=== PATIENT | female | born 1935 | race Asian ===

== ENCOUNTER 2017-10-27 21:39 | Inpatient (IN) | payer OTHER ==
[~2017-10-27] VITALS: Ht 154.9 cm; Wt 45.4 kg
[~2017-10-27 21:39] MED LIST: CALCIUM 500 MG1 EACH PO; NAPROSYN500 MG PO; NORVASC2.5 MG PO; PRILOSEC OTC20 MG PO; VITAMIN D35000 UNIT PO; ZETIA10 MG PO
[2017-10-28 08:23] VITALS: BP 130/60
[2017-10-28 16:43] VITALS: BP 143/68
[2017-10-28 19:45] VITALS: BP 153/60
[2017-10-28 23:16] VITALS: BP 141/80
[2017-10-29 03:23] VITALS: BP 141/66
[2017-10-29 06:35] LABS: CHLORIDE 103 MEQ/L (99-109); CREATININE 0.8 MG/DL (0.6-1.3); GFR ESTIMATE (CALCULATED) > 59 mL/min/; GLUCOSE 158 mg/dL (70-99); MAGNESIUM 1.7 mg/dl (1.3-2.7); PHOSPHORUS 2.7 mg/dL (2.5-4.9); POTASSIUM 4.3 MEQ/L (3.7-5.4); SODIUM 135 MEQ/L (136-147); UREA NITROGEN (BUN) 9 mg/dL (9-23)
[2017-10-29 06:48] LABS: HEMATOCRIT 34.3 % (36.0-46.0); HEMOGLOBIN 10.3 G/DL (11.9-15.5); MCH 21.4 PG (29.0-34.0); MCV 71.3 FL (83-99); PLATELET COUNT 387 K/uL (156-360); RBC DIS.WIDTH-CV 24.4 % (11.8-14.6); RED BLOOD COUNT 4.81 M/uL (3.80-5.20)
[2017-10-29 07:00] VITALS: BP 120/79
[2017-10-29 10:20] VITALS: BP 147/76
[2017-10-29 15:25] VITALS: BP 126/60
[2017-10-29 19:15] VITALS: BP 141/71
[2017-10-29 23:27] VITALS: BP 142/73
[2017-10-30] VITALS (8 sets, daily range): BP systolic 122–157; BP diastolic 64–107
[2017-10-30 11:19] LABS: HEMATOCRIT 33.2 % (36.0-46.0); HEMOGLOBIN 10.1 G/DL (11.9-15.5); MCH 21.5 PG (29.0-34.0); MCHC 30.4 G/DL (30.0-36.0); MCV 70.8 FL (83-99); PLATELET COUNT 383 K/uL (156-360); RBC DIS.WIDTH-CV 25.1 % (11.8-14.6); RBC DIS.WIDTH-SD 61.3 % (39-53); RED BLOOD COUNT 4.69 M/uL (3.80-5.20); WHITE BLOOD COUNT 15.6 K/uL (4.1-10.2)
[2017-10-30 12:25] LABS: CHLORIDE 100 MEQ/L (99-109); CREATININE 0.8 MG/DL (0.6-1.3); GFR ESTIMATE (CALCULATED) > 59 mL/min/; GLUCOSE 122 mg/dL (70-99); MAGNESIUM 1.8 mg/dl (1.3-2.7); PHOSPHORUS 2.8 mg/dL (2.5-4.9); SODIUM 135 MEQ/L (136-147); UREA NITROGEN (BUN) 9 mg/dL (9-23)
[2017-10-30 18:37] LABS: APPEARANCE CLEAR ((CLEAR)); BILIRUBIN NEGATIVE; BLOOD SMALL; COLOR YELLOW ((YELLOW)); GLUCOSE (STRIP) NEGATIVE; KETONES NEGATIVE; LEUKOCYTES NEGATIVE; NITRITE NEGATIVE; PROTEIN (STRIP) 100; SPECIFIC GRAVITY 1.016 (1.000-1.030); UROBILINOGEN 0.2 MG/DL (0.2-1.0)
[2017-10-30 18:50] LABS: BACTERIA NONE SEEN /HPF; EPITHELIAL CELLS RARE /HPF; MUCUS TRACE /LPF; RED BLOOD CELLS 30-40 /HPF (0-5); UCUL ADDED? YES
[2017-10-31 04:21] VITALS: BP 112/55
[2017-10-31 06:40] LABS: CHLORIDE 102 MEQ/L (99-109); CREATININE 0.9 MG/DL (0.6-1.3); GFR ESTIMATE (CALCULATED) > 59 mL/min/; GLUCOSE 115 mg/dL (70-99); MAGNESIUM 1.9 mg/dl (1.3-2.7); PHOSPHORUS 2.9 mg/dL (2.5-4.9); POTASSIUM 4.2 MEQ/L (3.7-5.4); SODIUM 136 MEQ/L (136-147); UREA NITROGEN (BUN) 16 mg/dL (9-23)
[2017-10-31 06:47] LABS: HEMATOCRIT 32.5 % (36.0-46.0); HEMOGLOBIN 10.1 G/DL (11.9-15.5); MCH 21.9 PG (29.0-34.0); MCHC 31.1 G/DL (30.0-36.0); MCV 70.3 FL (83-99); NRBC (%) 0.7 /100 WBC (0-0); PLATELET COUNT 365 K/uL (156-360); RBC DIS.WIDTH-CV 24.9 % (11.8-14.6); RBC DIS.WIDTH-SD 61.1 % (39-53); RED BLOOD COUNT 4.62 M/uL (3.80-5.20); WHITE BLOOD COUNT 6.1 K/uL (4.1-10.2)
[2017-10-31 07:00] VITALS: BP 120/73
[2017-10-31 11:00] VITALS: BP 124/76
[2017-10-31 15:05] VITALS: BP 131/78
[2017-10-31 23:23] VITALS: BP 118/78
[2017-11-01 06:08] LABS: HEMATOCRIT 30.9 % (36.0-46.0); HEMOGLOBIN 9.3 G/DL (11.9-15.5); MCH 21.6 PG (29.0-34.0); MCHC 30.1 G/DL (30.0-36.0); MCV 71.7 FL (83-99); PLATELET COUNT 402 K/uL (156-360); RBC DIS.WIDTH-CV 24.7 % (11.8-14.6); RBC DIS.WIDTH-SD 62.4 % (39-53); RED BLOOD COUNT 4.31 M/uL (3.80-5.20); WHITE BLOOD COUNT 4.7 K/uL (4.1-10.2)
[2017-11-01 06:24] LABS: CHLORIDE 105 MEQ/L (99-109); GFR ESTIMATE (CALCULATED) 56 mL/min/; GLUCOSE 96 mg/dL (70-99); MAGNESIUM 1.9 mg/dl (1.3-2.7); PHOSPHORUS 3.2 mg/dL (2.5-4.9); POTASSIUM 4.3 MEQ/L (3.7-5.4); SODIUM 136 MEQ/L (136-147); UREA NITROGEN (BUN) 13 mg/dL (9-23)
[2017-11-01 07:15] VITALS: BP 140/84
[2017-11-01 11:10] VITALS: BP 136/79
[2017-11-01 15:05] VITALS: BP 131/69
[2017-11-01 22:39] VITALS: BP 155/76
[2017-11-02 06:44] LABS: HEMATOCRIT 30.2 % (36.0-46.0); MCH 21.5 PG (29.0-34.0); MCHC 29.8 G/DL (30.0-36.0); MCV 72.2 FL (83-99); PLATELET COUNT 412 K/uL (156-360); RBC DIS.WIDTH-CV 25.1 % (11.8-14.6); RBC DIS.WIDTH-SD 63.6 % (39-53); RED BLOOD COUNT 4.18 M/uL (3.80-5.20); WHITE BLOOD COUNT 6.3 K/uL (4.1-10.2)
[2017-11-02 07:15] VITALS: BP 123/58
[2017-11-02 07:17] LABS: CHLORIDE 106 MEQ/L (99-109); GFR ESTIMATE (CALCULATED) 56 mL/min/; GLUCOSE 103 mg/dL (70-99); POTASSIUM 4.2 MEQ/L (3.7-5.4); SODIUM 139 MEQ/L (136-147); UREA NITROGEN (BUN) 10 mg/dL (9-23)
[2017-11-02 16:10] VITALS: BP 126/60
[2017-11-02 23:07] VITALS: BP 155/82
[2017-11-03 06:19] LABS: HEMATOCRIT 29.6 % (36.0-46.0); HEMOGLOBIN 8.9 G/DL (11.9-15.5); MCH 21.6 PG (29.0-34.0); MCHC 30.1 G/DL (30.0-36.0); MCV 71.8 FL (83-99); PLATELET COUNT 410 K/uL (156-360); RBC DIS.WIDTH-CV 24.7 % (11.8-14.6); RBC DIS.WIDTH-SD 62.8 % (39-53); RED BLOOD COUNT 4.12 M/uL (3.80-5.20); WHITE BLOOD COUNT 7.3 K/uL (4.1-10.2)
[2017-11-03 06:37] LABS: CHLORIDE 105 MEQ/L (99-109); GFR ESTIMATE (CALCULATED) 56 mL/min/; GLUCOSE 117 mg/dL (70-99); POTASSIUM 3.9 MEQ/L (3.7-5.4); SODIUM 136 MEQ/L (136-147); UREA NITROGEN (BUN) 7 mg/dL (9-23)
[2017-11-03 07:10] VITALS: BP 122/63
[2017-11-03 11:52] VITALS: BP 142/75
[2017-11-03 15:21] VITALS: BP 125/61
[2017-11-03 22:52] VITALS: BP 132/67
[2017-11-04 06:46] LABS: HEMATOCRIT 29.4 % (36.0-46.0); HEMOGLOBIN 8.9 G/DL (11.9-15.5); MCH 21.8 PG (29.0-34.0); MCHC 30.3 G/DL (30.0-36.0); MCV 72.1 FL (83-99); PLATELET COUNT 429 K/uL (156-360); RBC DIS.WIDTH-CV 24.9 % (11.8-14.6); RBC DIS.WIDTH-SD 63.4 % (39-53); RED BLOOD COUNT 4.08 M/uL (3.80-5.20); WHITE BLOOD COUNT 8.8 K/uL (4.1-10.2)
[2017-11-04 06:49] LABS: CHLORIDE 105 MEQ/L (99-109); GFR ESTIMATE (CALCULATED) 56 mL/min/; GLUCOSE 120 mg/dL (70-99); SODIUM 136 MEQ/L (136-147); UREA NITROGEN (BUN) 4 mg/dL (9-23)
[2017-11-04 07:14] VITALS: BP 148/77
[2017-11-04 16:29] VITALS: BP 121/56
[2017-11-04 23:25] VITALS: BP 114/65
[2017-11-05 06:43] LABS: HEMATOCRIT 28.2 % (36.0-46.0); HEMOGLOBIN 8.6 G/DL (11.9-15.5); MCH 22.1 PG (29.0-34.0); MCHC 30.5 G/DL (30.0-36.0); MCV 72.3 FL (83-99); PLATELET COUNT 437 K/uL (156-360); RBC DIS.WIDTH-CV 25.2 % (11.8-14.6); RBC DIS.WIDTH-SD 63.7 % (39-53); WHITE BLOOD COUNT 8.4 K/uL (4.1-10.2)
[2017-11-05 06:53] LABS: CHLORIDE 106 MEQ/L (99-109); CREATININE 1.1 MG/DL (0.6-1.3); GFR ESTIMATE (CALCULATED) 50 mL/min/; GLUCOSE 102 mg/dL (70-99); SODIUM 137 MEQ/L (136-147); UREA NITROGEN (BUN) 5 mg/dL (9-23)
[2017-11-05 07:56] VITALS: BP 118/60
[2017-11-05 11:31] VITALS: BP 119/61
== END 2017-11-05 13:55 | disposition home or self-care (01) | DRG 327 ==
LOC: ENRESERV 21:39 → 5EAST 10-28 07:17 → 2SOUTH 10-28 07:17 → ENRESERV 10-28 12:01 → 5EAST 10-28 14:59
PROVIDERS: Physician Assistant; Surgery
PROC: 0DTL0ZZ Resection of Transverse Colon, Open Approach (ICD-10-PCS; principal; 2017-10-28)
PROC: 0FT40ZZ Resection of Gallbladder, Open Approach (ICD-10-PCS; principal; 2017-10-28)
PROC: 0DTK0ZZ Resection of Ascending Colon, Open Approach (ICD-10-PCS; principal; 2017-10-28)
PROC: 0DB60ZZ Excision of Stomach, Open Approach (ICD-10-PCS; principal; 2017-10-28)
PROC: 0DTM0ZZ Resection of Descending Colon, Open Approach (ICD-10-PCS; principal; 2017-10-28)
DX: C18.4 Malignant neoplasm of transverse colon (principal); K80.10 Calculus of gallbladder with chronic cholecystitis without obstruction; I10 Essential (primary) hypertension; K76.0 Fatty (change of) liver, not elsewhere classified; D64.9 Anemia, unspecified; Z90.49 Acquired absence of other specified parts of digestive tract; Z87.891 Personal history of nicotine dependence; E78.5 Hyperlipidemia, unspecified; K21.0 Gastro-esophageal reflux disease with esophagitis; M10.00 Idiopathic gout, unspecified site; K56.7 Ileus, unspecified; M19.90 Unspecified osteoarthritis, unspecified site; M81.0 Age-related osteoporosis without current pathological fracture
CPT/HCPCS: 36415; 71045; 74018; 80048; 80048 91; 80053; 81003; 82378; 83735; 84100; 85025; 85027; 85610 GA; 85730 GA; 86850; 86900; 86901; 86920; 87086; 87641; 88304; 88305; 88309; 93005; C9113; J1100; J1170; J1335; J1650; J1885; J2405; J3010; J7050; J7120; Q0175; S0020